=== PATIENT | female | born 1980 | race Caucasian/White ===

== ENCOUNTER 2019-03-06 12:16 | Emergency (ER) | payer SELFPAY ==
[2019-03-06] MEDS ORDERED: Ketorolac 30 MG/ML SDV IM ONE (13:04)
--- NOTE | 2019-03-06 13:47 | EDM.PDOC ---
ED HPI GENERAL MEDICAL PROBLEM - General Chief Complaint: Eye Problems Stated Complaint: EYE PAIN Time Seen by Provider: 03/06/19 12:42 Source of Information: Reports: Patient, RN Notes Reviewed History Limitations: Reports: No Limitations - History of Present Illness INITIAL COMMENTS - FREE TEXT/NARRATIVE: Patient is a 38-year-old female who presents to the ED for the evaluation of eye problem. 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 This is the right thigh. She states that she came to the ER today as it is painful, and notes some feelings of swelling within the eye socket. She states this has happened before. She states that she sees a specialist in [place], [place], Dr. Max for this. She notes that she normally gets a prescription for Ultram and this does provide her pretty good relief. She notes that she is only visiting from [place] at this time, and she left her pain medications at home in [place] as she did not think she would need them. She is unsure if the weather change is causing her to have some swelling and pain. She does not note a history of allergies that states that the weather appears much different from in [place], and she is wondering if it isn't possibly due to some allergies as well. She did take 200 mg of ibuprofen yesterday and this didn't provide a whole lot of relief. 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 Right Eye Pain Score (Numeric/FACES): 6 - Related Data Allergies Allergy/AdvReac Type Severity Reaction Status Date / Time codeine Allergy Itching Verified 03/06/19 12:27 Home Meds: Home Meds traMADol [Ultram] 50 mg PO Q6H PRN 02/18/19 [History] Past Medical History - Past Health History Medical/Surgical History: Denies Medical/Surgical History HEENT History: Reports: Other (See Below) Other HEENT History: prosthetic right eye [employer] History: Reports: - Past Surgical History HEENT Surgical History: Reports: Eye Surgery Social & Family History - Tobacco Use Smoking Status *Q: Never Smoker - Caffeine Use Caffeine Use: Reports: Coffee, Energy Drinks, Soda ED ROS GENERAL - Review of Systems Review Of Systems: See Below Constitutional: Reports: No Symptoms HEENT: Reports: Eye Pain (Right eye socket pain/swelling). Denies: Vision Change Respiratory: Reports: No Symptoms Cardiovascular: Reports: No Symptoms Endocrine: Reports: No Symptoms GI/Abdominal: Reports: No Symptoms : Reports: No Symptoms Musculoskeletal: Reports: No Symptoms Skin: Reports: No Symptoms Neurological: Reports: No Symptoms Psychiatric: Reports: No Symptoms Hematologic/Lymphatic: Reports: No Symptoms Immunologic: Reports: No Symptoms ED EXAM GENERAL W FULL EYE - Physical Exam Exam: See Below Exam Limited By: No Limitations General Appearance: Alert, WD/WN, No Apparent Distress Eye Exam: Bilateral Eye: EOMI, Normal Inspection (No obvious signs of swelling noted to right eye.), PERRL Eyelids: Bilateral: Normal Appearance Conjunctiva & Sclera: Left: Normal Appearance Cornea Exam: Left: Normal Appearance Extraocular Movements: Bilateral: Intact Pupils: Other (normal on the left) Pupillary Size: Left: 3 mm Pupillary Reaction: Left: Brisk Respiratory/Chest: No Respiratory Distress, Lungs Clear, Normal Breath Sounds, No Accessory Muscle Use, Chest Non-Tender Cardiovascular: Normal Peripheral Pulses, Regular Rate, Rhythm, No Murmur Extremities: Normal Inspection, Normal Capillary Refill Neurological: Alert, Oriented, Normal Cognition, No Motor/Sensory Deficits Psychiatric: Normal Affect, Normal Mood Skin Exam: Warm, Dry, Intact, Normal Color, No Rash Course - Vital Signs Last Recorded V/S: Last Vital Signs Temp 97.0 F 03/06/19 12:24 Pulse 93 03/06/19 12:24 Resp 18 03/06/19 12:24 BP 139/94 H 03/06/19 12:24 Pulse Ox 100 03/06/19 12:24 - Orders/Labs/Meds Meds: Medications Discontinued Medications Generic Name Dose Route Start Last Admin Trade Name Kwasiq PRN Reason Stop Dose Admin Ketorolac Tromethamine 30 mg 03/06/19 13:04 03/06/19 13:24 Toradol IM 03/06/19 13:05 30 mg ONETIME ONE Administration - Re-Assessments/Exams Free Text/Narrative Re-Assessment/Exam: 03/06/19 13:45 Patient presents to the ED for the evaluation of right eye pain. I have ordered 30 mg IM Toradol to see if this does not provide her relief from the pain and swelling. I did check her PDMP as Dr. Wells did as well the previous day when she was seen here and she has had multiple prescriptions by multiple different providers which would suggest a drug seeking behavior. I do not feel comfortable providing her with Ultram at this time, I will recommend that she take at least 600 mg ibuprofen every 6 hours as needed for further pain relief, and if she is going to be here longer than 30 ended at length that someone tried to ship her medications to her. She did last just get a 30 tablet prescription of tramadol from a provider in [facility] on February 21. 03/06/19 14:08 The patient states that the Toradol did help a little bit with this relieved some of the pain and swelling. I will recommend that she take ibuprofen 600 mg every 6 hours as needed for further pain and inflammation relief. She is understanding of this. She will also try some [id number] allergy medication to see if this isn't also a cause of some of the problems. Departure - Departure Time of Disposition: 14:09 Disposition: Home, Self-Care 01 Condition: Fair Clinical Impression: History of eye prosthesis Eye pain Qualifiers: Laterality: right Qualified Code(s): H57.11 - Ocular pain, right eye - Discharge Information *PRESCRIPTION DRUG MONITORING PROGRAM REVIEWED*: Yes *COPY OF PRESCRIPTION DRUG MONITORING REPORT IN PATIENT MARY: No Referrals: PCP,Not In Area [Primary Care Provider] - Forms: ED Department Discharge Additional Instructions: You have been evaluated in the ED today for your right eye pain. You have been given an anti-inflammatory called Toradol for initial pain relief. Recommend that you take [id number] ibuprofen, 600 mg every 6 hours as needed for further pain relief. You may also try an [id number] antiallergy medication, Claritin, Zyrtec, or Erica to see if this doesn't also provide you relief. Please return to the ED if your symptoms should change or worsen.
== END 2019-03-06 14:19 | disposition home or self-care (01) ==
LOC: JD.ED 12:16
DX: H57.11 Ocular pain, right eye (principal); Z97.0 Presence of artificial eye; Z88.5 Allergy status to narcotic agent
CPT/HCPCS: 96372; 99283; J1885